=== PATIENT | male | born 1980 | race Caucasian/White ===

== ENCOUNTER 2021-01-12 21:26 | Emergency (ER) | payer BC, OTHER ==
[~2021-01-12] VITALS: Ht 182.9 cm; Wt 106.8 kg
[~2021-01-12 21:26] MED LIST: METH-37 PO; NAPR500T8 PO
[2021-01-12] MEDS ORDERED: LIDOCAINE 2% 20 ML VIAL. ONE (21:36)
[2021-01-12 21:38] VITALS: BP 164/114
--- NOTE | 2021-01-12 21:38 | PHYS DOC ---
Past History Past Medical History: No Pertinent History Past Surgical History: Other Alcohol Use: Occasionally Drug Use: None General Adult EDM: Chief Complaint: FINGER INJURY HPI: HPI: "I got a fish hooked...".. " and the fish got away...." " I tried to take it out my self.. ".. " Just could not do it.." Patient is a 40 year old male who presents with above hx embedded fish hook into ring finger on left hand. Patient distal neurovascular is intact. Patient is right-hand dominant. Patient does not remember his last tetanus. No recent travel. No sick ill contacts. No history of depression. No history of immunosuppression. Review of Systems: Review of Systems: Constitutional: Denies fever or chills Eyes: Denies change in visual acuity HENT: Denies nasal congestion or sore throat Respiratory: Denies cough or shortness of breath Cardiovascular: Denies chest pain or edema GI: Denies abdominal pain, nausea, vomiting, bloody stools or diarrhea : Denies dysuria Musculoskeletal: Complains of embedded fishhook left hand Integument: Denies rash Neurologic: Denies headache, focal weakness or sensory changes Endocrine: Denies polyuria or polydipsia Lymphatic: Denies swollen glands Psychiatric: Denies depression or anxiety Family History: Family History: Noncontributory to presentation Current Medications: Current Meds: See nursing for home meds Allergies: Allergies: Allergies Coded Allergies Type Severity Reaction Last Updated Verified No Known Drug Allergies 07/29/15 No Physical Exam: PE: Constitutional: Well developed, well nourished, moderate acute distress, non-tox ic appearance. [] HENT: Normocephalic, atraumatic, bilateral external ears normal, oropharynx moist, no oral exudates, nose normal. [] Eyes: PERRLA, EOMI, conjunctiva normal, no discharge. [] Neck: Normal range of motion, no tenderness, supple, no stridor. [] Cardiovascular:Heart rate regular rhythm, no murmur [] Lungs & Thorax: Bilateral breath sounds clear to auscultation [] Abdomen: Bowel sounds normal, soft, no tenderness, no masses, no pulsatile masses. [] Skin: Warm, dry, no erythema, no rash. [] Back: No tenderness, no CVA tenderness. [] Extremities: No tenderness, no cyanosis, no clubbing, ROM intact, no edema. Embedded treble hook left middle finger. Neurologic: Alert and oriented X 3, normal motor function, normal sensory function, no focal deficits noted. [] Psychologic: Affect normal, judgement normal, mood normal. [] EKG: EKG: [] Radiology/Procedures: Radiology/Procedures: [] Heart Score: C/O Chest Pain: N/A Risk Factors: Risk Factors: DM, Current or recent (<one month) smoker, HTN, HLP, family history of CAD, obesity. Risk Scores: Score 0 - 3: 2.5% MACE over next 6 weeks - Discharge Home Score 4 - 6: 20.3% MACE over next 6 weeks - Admit for Clinical Observation Score 7 - 10: 72.7% MACE over next 6 weeks - Early Invasive Strategies Course & Med Decision Making: Course & Med Decision Making Pertinent Labs and Imaging studies reviewed. (See chart for details) Procedure note-embedded fish hook.--hand and 4th Lt finger cleaned with surgical soap and water. Patient received a digital block of 2% lidocaine as well as some local injection of lidocaine at site of fishhook embedded. Used a metal cutting dice, to remove surrounding barbs. Then passed fishhook through the skin cutting off retaining rosalba. Reverse course of fishhook removal. Irrigated puncture area extensively. Dressing applied. Patient to take Bactrim DS twice a day. Soak finger in warm salt water or Epson salt 4 times a day. Afterwards apply Polysporin. Take Tylenol and ibuprofen for pain. Monitor for infection. Return if any concerns. Tetanus was updated. Impression: 1. Embedded trouble hook left ring finger [] Dragon Disclaimer: Dragon Disclaimer: This electronic medical record was generated, in whole or in part, using a voice recognition dictation system. Departure Departure: Referrals: PCP,NO (PCP) Scripts Sulfamethoxazole/Trimethoprim (BACTRIM DS TABLET) 1 Each Tablet 1 TAB PO BID for c for 7 Days, #14 TAB 0 Refills Prov: HENRY MADDEN MD 01/12/21 Adebayo Disclaimer This chart was dictated in whole or in part using Voice Recognition software in a busy, high-work load, and often noisy Emergency Department environment. It may contain unintended and wholly unrecognized errors or omissions. Dragon Disclaimer This chart was dictated in whole or in part using Voice Recognition software in a busy, high-work load, and often noisy Emergency Department environment. It may contain unintended and wholly unrecognized errors or omissions. HENRY MADDEN MD Jan 12, 2021 21:38
[2021-01-12] MEDS ORDERED: LIDOCAINE 2% 20 ML VIAL. IJ ONE (21:45)
[2021-01-12] MEDS ORDERED: DIPH,PERTUSS(ACELL),TET VAC/PF 0.5 ML SYRINGE. VAX IM ONE (21:45)
[2021-01-12] MEDS ORDERED: SULF1TAB24 PO (22:09)
[2021-01-12] MEDS ORDERED: SMZ/TMP 800/160MG TABLET. PO ONE (22:15)
== END 2021-01-12 22:23 | disposition home or self-care (01) ==
LOC: ER 21:26
DX: S60.455A Superficial foreign body of left ring finger, initial encounter (principal); W45.8XXA Other foreign body or object entering through skin, initial encounter; Y93.89 Activity, other specified; Y92.89 Other specified places as the place of occurrence of the external cause; Y99.8 Other external cause status
CPT/HCPCS: 64450; 90471; 90715; 99284; J2001